=== PATIENT | female | born 1980 | race Caucasian/White ===

== ENCOUNTER 2024-01-11 17:20 | Emergency (ER) | payer OTHER ==
[~2024-01-11] VITALS: Ht 185.4 cm; Wt 63.5 kg
[2024-01-11 19:22] VITALS: BP 127/64; TEMP 98.4; O2SAT 100
[2024-01-11] MEDS: IBUPROFEN 400 MG TABLET PO ONE (19:37)
== END 2024-01-11 19:37 | disposition home or self-care (01) ==
LOC: ER 17:26
DX: S62.661A Nondisplaced fracture of distal phalanx of left index finger, initial encounter for closed fracture (principal); W23.0XXA Caught, crushed, jammed, or pinched between moving objects, initial encounter; Y93.89 Activity, other specified; Y92.89 Other specified places as the place of occurrence of the external cause; Y99.8 Other external cause status
CPT/HCPCS: 73140-TC